=== PATIENT | female | born 1935 ===

== ENCOUNTER 2017-04-15 10:13 | Inpatient (IN) ==
[2017-04-15] MEDS ORDERED: PHENYLEPHRINE DRIP 40 MG/250 ML PREMIX IV ONE ×3 (10:53→17:06)
[2017-04-15] MEDS ORDERED: SODIUM CHLORIDE 0.9% 1,000 ML IV PRN ×2 (11:49→17:03)
[2017-04-15] MEDS ORDERED: MORPHINE 2 MG/1 ML SYRINGE IV PRN ×2 (12:18→14:56)
[2017-04-15] MEDS ORDERED: PIPERACILLIN/TAZOBACTAM 3,375 MG in SODIUM CHLORIDE 0.9% 100 ML IV SCH (12:30)
[2017-04-15 12:35] LABS: Basophils # 0.1 10*3/uL (0.0-0.2); Basophils % 0.2 % (0.0-0.8); Hematocrit 33.6 VOL% (35.7-47.0); Hemoglobin 10.5 GM/DL (12.0-16.0); Immature Granulocytes % 1.3 %; Immature Granulocytes Absolute 0.36 #; Lymphocytes # 0.9 10*3/uL (1.4-4.0); Lymphocytes % 3.4 % (21.3-54.2); Mean Corpuscular HGB Conc 31.3 GM/DL (32-36); Mean Corpuscular Hemoglobin 29 PG (27-34); Mean Corpuscular Volume 93.9 FL (87-102); Mean Platelet Volume 11.1 FL (9.6-12.0); Monocytes # 0.8 10*3/uL (0.11-0.8); Monocytes % 2.9 % (1.7-12.7); NRBC # 0.05 10*3/uL; Neutrophils # 25.2 10*3/uL (1.4-7.4); Neutrophils % 92.2 % (38.7-73.9); Platelet Count 289 T/CUMM (130-400); Red Blood Count 3.58 MC/CUMM (3.8-5.5); White Blood Count 27.3 T/CUMM (4-12)
[2017-04-15] MEDS ORDERED: ALBUMIN 5% 12.5 GM/250 ML VIAL IV ONE (12:36)
[2017-04-15 12:43] LABS: Calcium 7.7 MG/DL (8.5-10.1); Osmolality,Calculated 328.4 MOS/KG (273-304)
[2017-04-15 12:53] LABS: Band Neutrophils 2 % (0-10); Lymphocytes 1 % (20-55); Microcytosis 1+; Segmented Neutrophils 95 % (50-85); Total Cells Counted 100
[2017-04-15 12:54] LABS: Anisocytosis 1+; Platelet Estimate Normal
[2017-04-15] MEDS: ALBUTEROL/IPRATROPIUM 3 ML NEB RESP TX SCH ×2 (13:31→19:23)
[2017-04-15] MEDS ORDERED: FLUCONAZOLE INJ 100 MG in IV BAG 1 EACH IV SCH (14:00)
[2017-04-15] MEDS ORDERED: CHLORHEXIDINE 4% SOLN 118 ML BOTTLE TOP ONE (14:54)
[2017-04-15] MEDS ORDERED: SKIN HEALING OINT (AQUAPHOR) 50 GM TUBE TOP PRN (14:54)
[2017-04-15] MEDS ORDERED: ONDANSETRON 4 MG/2 ML VIAL IV PRN (14:56)
[2017-04-15] MEDS ORDERED: SEVOFLURANE 1 UNIT/15 MINUTE INH ONE (15:35)
[2017-04-15] MEDS ORDERED: SODIUM CHLORIDE 0.9% 1,000 ML IV ONE (15:36)
[2017-04-15] MEDS ORDERED: ROCURONIUM 100 MG/10 ML VIAL IV ONE (15:36)
[2017-04-15] MEDS ORDERED: fentaNYL 100 MCG/2 ML VIAL ONE (15:36)
[2017-04-15] MEDS ORDERED: ETOMIDATE 40 MG/20 ML VIAL IV ONE (15:36)
[2017-04-15 15:45] LABS: ABG Base Excess -1.2 MMOL/L (-2.5-2.5); ABG HCO3 23.4 MMOL/L (20-26); ABG Oxygen Saturation 98.1 % (95-100); ABG PCO2 41.1 MM HG (35-48); ABG PH 7.373 (7.35-7.45); ABG PO2 98.6 MM HG (80-95); ABG TCO2 22.8 MMOL/L (23-27); Allen Test Positive; Pt O2 Delivery Device Ventilator
[2017-04-15 15:46] LABS: Hematocrit 20.2 VOL% (35.7-47.0); Hemoglobin 6.5 GM/DL (12.0-16.0)
[2017-04-15] MEDS ORDERED: NOREPINEPHRINE 4 MG/4 ML VIAL IV ONE (15:53)
[2017-04-15] MEDS ORDERED: NOREPINEPHRINE 16 MG in SODIUM CHLORIDE 0.9% 234 ML IV SCH (16:00)
[2017-04-15] MEDS ORDERED: PROPOFOL 1,000 MG/100 ML BOTTLE IV SCH (16:30)
[2017-04-15] MEDS ORDERED: NOREPINEPHRINE 8 MG in SODIUM CHLORIDE 0.9% 242 ML IV SCH (16:30)
[2017-04-15] MEDS ORDERED: PHENYLEPHRINE INJ 160 MG in SODIUM CHLORIDE 0.9% 234 ML IV SCH (18:30)
[2017-04-15 19:50] LABS: Basophils % 0.2 % (0.0-0.8); Hematocrit 36.7 VOL% (35.7-47.0); Lymphocytes # 0.9 10*3/uL (1.4-4.0); Lymphocytes % 5.9 % (21.3-54.2); Mean Corpuscular HGB Conc 32.7 GM/DL (32-36); Mean Corpuscular Hemoglobin 31 PG (27-34); Mean Corpuscular Volume 94.8 FL (87-102); Mean Platelet Volume 11.4 FL (9.6-12.0); Monocytes # 0.5 10*3/uL (0.11-0.8); Monocytes % 3.5 % (1.7-12.7); NRBC # 0.25 10*3/uL; Neutrophils # 13.1 10*3/uL (1.4-7.4); Neutrophils % 88.4 % (38.7-73.9); Platelet Count 146 T/CUMM (130-400); Red Blood Count 3.87 MC/CUMM (3.8-5.5); Red Cell Distribution Width 16.9 % (9.3-17.3); White Blood Count 14.8 T/CUMM (4-12)
[2017-04-15 20:14] LABS: Albumin 1.6 G/DL (3.4-5.0); Bilirubin,Total 1.7 MG/DL (0.2-1.0); Osmolality,Calculated 328.4 MOS/KG (273-304); Potassium 3.9 MMOL/L (3.5-5.1); Total Protein 3.3 G/DL (6.4-8.3)
[2017-04-15] MEDS ORDERED: PANTOPRAZOLE 40 MG VIAL IV SCH (21:00)
[2017-04-15] MEDS ORDERED: ceFAZolin 2,000 MG in PREMIX 1 EACH IV SCH (21:00)
[2017-04-15] MEDS ORDERED: HALOPERIDOL 5 MG/ML AMP IV SCH (21:00)
[2017-04-15 21:14] LABS: Allen Test Positive; Pt O2 Delivery Device Ventilator
[2017-04-15 21:15] LABS: ABG Base Excess -16.4 MMOL/L (-2.5-2.5); ABG HCO3 12.2 MMOL/L (20-26); ABG Oxygen Saturation 95.2 % (95-100); ABG PCO2 29.8 MM HG (35-48); ABG PO2 83.6 MM HG (80-95); ABG TCO2 10.3 MMOL/L (23-27)
[2017-04-15 21:28] LABS: ABG PH 7.181 (7.35-7.45)
[2017-04-15] MEDS ORDERED: DOPamine 800 MG/250 ML PREMIX IV SCH (21:30)
[2017-04-15 22:49] VITALS: BP 60/40
== END 2017-04-15 21:31 | disposition expired | DRG 326 ==
LOC: N.CC 10:49
PROVIDERS: ADMIT Internal Medicine Pulmonary Disease; ATTEND Internal Medicine Pulmonary Disease